=== PATIENT | female | born 1960 | race Caucasian/White ===

== ENCOUNTER → 2021-05-15 14:31 | Outpatient (CLI) | payer BC, SELFPAY ==
[2021-05-15 15:00] LABS: COVID19 -Nasal RAPID Negative (Negative)
== END ==
PROVIDERS: Referring Provider Nurse Practitioner Family; Visit Provider Nurse Practitioner Family
DX: R51.9 Headache, unspecified (principal); R11.0 Nausea
CPT/HCPCS: 87635